=== PATIENT | female | born 1950 | race Caucasian/White ===

== ENCOUNTER → 2017-03-27 | Outpatient (CLI) | payer MEDICARE, OTHER ==
--- NOTE | 2017-03-27 14:25 | RAD ---
DATE: March 27, 2017 EXAM: DIGITAL SCREEN BILAT W/CAD HISTORY: Screening study. COMPARISON: May 30, 2011 This study was interpreted with the benefit of Computerized Aided Detection (CAD). FINDINGS: The breast parenchyma shows scattered fibroglandular densities. There is new retroareolar nodularity of the left breast. Recommend focal compression views in the CC and MLO projections and a 90 degrees mediolateral view of the left breast followed by left breast sonography for further evaluation. There is a nodular density seen posteriorly within the upper-outer quadrant of the left breast which is stable. There is a group of calcifications within the anterior upper outer quadrant of the right breast which are stable. No new clustering of pleomorphic microcalcifications are evident on either side. IMPRESSION: New nodularity of the retroareolar region of the left breast. Additional imaging is needed. BI-RADS CATEGORY: 0 INCOMPLETE: NEEDS ADDITIONAL IMAGING EVALUATION AND/OR PRIOR MAMMOGRAMS FOR COMPARISON. RECOMMENDED FOLLOW-UP: ADD ADDITIONAL IMAGING PQRS compliance statement: Patient information was entered into a reminder system with a target due date now for the next imaging study. Mammography is a sensitive method for finding small breast cancers, but it does not detect them all and is not a substitute for careful clinical examination. A negative mammogram does not negate a clinically suspicious finding and should not result in delay in biopsying a clinically suspicious abnormality. "Our facility is accredited by the [employer] Mammography [employer]." The patient's breast density may affect the ability of mammography to detect breast cancer. There are 4 categories of breast density, A, B, C and D. Breast density A means that most of the breast tissue is replaced with adipose tissue and therefore is not dense. Breast density B means that the breast tissue is mildly dense and scattered. Breast density C means that the breast tissue is heterogeneously dense. Breast density D means that the breast tissue is very dense. Breast densities especially C and D may decrease the sensitivity of mammography to detect breast cancer. Therefore, the patient may benefit from 3-D breast mammography (3D breast tomography) as a part of their screening mammogram. Insurance may or may not pay for this additional imaging. The patient's breast density based on today's mammogram is category B.
== END | disposition home or self-care (01) ==
LOC: MAMMO 10:26
PROVIDERS: ATTEND Family Medicine
DX: Z12.31 Encounter for screening mammogram for malignant neoplasm of breast (principal); Z80.3 Family history of malignant neoplasm of breast
CPT/HCPCS: G0202; 77067

== ENCOUNTER → 2017-03-30 | Outpatient (CLI) | payer MEDICARE, OTHER ==
--- NOTE | 2017-03-30 11:17 | RAD ---
DATE: March 30, 2017 EXAM: DIGITAL DIAGNOSTIC LT, SONOGRAPHY BREAST LEFT HISTORY: Further evaluation of new retroareolar nodularity of the left breast seen on screening mammogram. COMPARISON: Screening mammogram dated March 27, 2017. This study was interpreted with the benefit of Computerized Aided Detection (CAD). DIAGNOSTIC LEFT-SIDED MAMMOGRAPHY FINDINGS: Focal digital compression views of the left breast in the CC and MLO projections and a digital 90 degree mediolateral view of the left breast were performed. There is persistent retroareolar nodularity just superior to the nipple. 2 nodular densities are seen in this area. LEFT BREAST SONOGRAPHY: High-resolution sonography of the retroareolar region of the left breast was performed. There is a dilated retroareolar duct measuring 7 mm in caliber. No intraluminal nodule is seen. This is seen at the 12:00 position and would account for one of the nodules seen mammographically. At the 11:00 position just adjacent to the dilated duct, a solid hypoechoic nodule is seen measuring 11 mm x 6 mm x 7 mm in size. There is some color Doppler flow seen extending into the periphery of the lesion. This corresponds to the other nodule seen mammographically. Recommend ultrasound-guided biopsy of this nodule. IMPRESSION: Solid 11 mm nodule of the 11:00 retroareolar region of the left breast. Recommend ultrasound-guided biopsy of this nodule. Note-I discussed the results with the patient after completion of the examination at 11:00 AM on March 30, 2017. I told the patient that there is a solid nodule that needs to be biopsied using ultrasound guidance. I told the patient to call he physician's office for further instructions. In addition, I called these results to nurse Jyoti in Dr. Nagi Lund's office at 11:10 AM on March 30, 2017. BI-RADS CATEGORY: 4 SUSPICIOUS ABNORMALITY-BIOPSY SHOULD BE CONSIDERED RECOMMENDED FOLLOW-UP: BIO BIOPSY RECOMMENDED PQRS compliance statement: Patient information was entered into a reminder system with a target due date now for the next procedure. "Our facility is accredited by the [employer] Mammography [employer]."
== END | disposition home or self-care (01) ==
LOC: MAMMO 09:30
PROVIDERS: ATTEND Family Medicine
DX: N63 Unspecified lump in breast (principal)
CPT/HCPCS: 76641; G0206; 77065

== ENCOUNTER → 2017-04-13 | Outpatient (CLI) | payer MEDICARE, OTHER ==
[~2017-04-13] VITALS: Ht 170.2 cm; Wt 77.6 kg
[~2017-04-13] MED LIST: ALPR0.5T6 PO; BISO1TAB4 PO; BUSP10TA PO; CRESTOR20 MG PO; LIDOCAINE 2%/EPI 1:100,000 20 ML VIAL. IJ ONE; LOSA1TAB16 PO; MELO15TA23 PO; RANI150T2 PO
[2017-04-13 08:17] VITALS: BP 186/72
--- NOTE | 2017-04-13 15:01 | RAD ---
DATE: 04/13/2017 EXAM: DIGITAL DIAGNOSTIC LT, GUID NDL PLACE/ASPI/BX HISTORY: Abnormal finding in the left breast on prior diagnostic mammogram and ultrasound requiring biopsy. COMPARISON: Ultrasound and mammogram from 03/30/2017 The breast parenchyma is heterogeneously dense, which could reduce sensitivity of mammography. Breast parenchyma level C. FINDINGS: Procedure: Procedure was explained to the patient including the risks and benefits as well as the option to not perform the procedure at all. Consent was obtained from the patient prior to the procedure. A timeout was performed prior to the initiation of the procedure. The patient was placed supine on the examination table. Ultrasound localization of the lesion was performed. Patient was prepped and draped in sterile fashion. A small incision was made at the needle entry site. A 12 gauge vacuum-assisted needle was inserted into the left breast under ultrasound guidance, targeting the lesion seen on prior ultrasound at 11:00 position. 5-6 samples were obtained. Needle was removed and a lenard-shaped clip was inserted at the biopsy site. A small hematoma formed at the biopsy site. Subsequent mammogram was performed with CC and MLO views. There are-shaped clip is identified on the posterior nipple line, 15 mm from the location of the mass by mammogram. Subsequent ultrasound imaging was performed to localize the clip in relation to the mass. The clip appeared displaced, 1-2 cm from the mass along the biopsy tract.. At the end of the procedure, any bleeding had stopped. Patient was given instructions to place an ice pack over the left breast and call if there are any concerns for enlarging or worsening hematoma. IMPRESSION: Successful ultrasound-guided biopsy of a mass in the left breast. Samples were sent to pathology. Deployment of a lenard-shaped clip in the left breast. BI-RADS CATEGORY: 4 SUSPICIOUS ABNORMALITY- BIOPSY SHOULD BE CONSIDERED RECOMMENDED FOLLOW-UP: BIO BIOPSY RECOMMENDED PQRS compliance statement: . Mammography is a sensitive method for finding small breast cancers, but it does not detect them all and is not a substitute for careful clinical examination. A negative mammogram does not negate a clinically suspicious finding and should not result in delay in biopsying a clinically suspicious abnormality. "Our facility is accredited by the [employer] Mammography Program."
== END | disposition home or self-care (01) ==
LOC: US 07:56
PROVIDERS: ATTEND Family Medicine
DX: N63 Unspecified lump in breast (principal)
CPT/HCPCS: 19085; 76942; C1713; G0206; 77065